=== PATIENT | male | born 1950 | race African-American/Black ===

== ENCOUNTER 2021-12-10 06:23 | Day surgery (SDC) | payer MEDICARE, MEDICAID ==
[2021-12-06 14:47] VITALS: BMI 28.7
[2021-12-10] MEDS ORDERED: PROPOFOL 20 ML ONE (08:30)
== END 2021-12-10 09:05 | disposition home or self-care (01) ==
LOC: CSHSDC 06:23
PROVIDERS: ATTEND Internal Medicine Gastroenterology
PROC: 0DB98ZX Excision of Duodenum, Via Natural or Artificial Opening Endoscopic, Diagnostic (ICD-10-PCS; principal; 2021-12-10)
PROC: 0DB68ZX Excision of Stomach, Via Natural or Artificial Opening Endoscopic, Diagnostic (ICD-10-PCS; 2021-12-10)
DX: K29.80 Duodenitis without bleeding (principal); K31.7 Polyp of stomach and duodenum; K74.60 Unspecified cirrhosis of liver; I85.10 Secondary esophageal varices without bleeding; I10 Essential (primary) hypertension; M10.9 Gout, unspecified; H40.9 Unspecified glaucoma; F32.A Depression, unspecified; Z86.010 Personal history of colon polyps; Z86.19 Personal history of other infectious and parasitic diseases; Z88.0 Allergy status to penicillin; Z79.899 Other long term (current) drug therapy
CPT/HCPCS: 88305; J2704